=== PATIENT | female | born 1985 | race Caucasian/White ===

== ENCOUNTER 2021-03-21 07:49 | Emergency (ER) | payer OTHER, SELFPAY ==
[2021-03-21 07:50] VITALS: BP 147/74; PULSE 86; RESP 16; TEMP 36.7; O2SAT 99; BMI 24.1
--- NOTE | 2021-03-21 07:55 | DI.RAD.S_ITS ---
PROCEDURE: XR ANKLE LT MIN 3V INDICATIONS: lateral mal pain after rolled ankle TECHNIQUE: 3 views of the ankle were acquired. COMPARISON: None. FINDINGS: Bones: No fractures or dislocations. 1st metatarsal screws. No screw fracture. Ankle mortise is normally aligned. No suspicious bony lesions. Soft tissues: No tibiotalar joint effusion. Achilles tendon appears normal. IMPRESSION: No acute osseous abnormality. Dictated by: Jourdan Queen M.D. on 03/21/2021 at 8:59 Approved by: Jourdan Queen M.D. on 03/21/2021 at 9:01
--- NOTE | 2021-03-21 07:56 | ED.GENADULT ---
HPI - General Adult General Chief complaint: Extremity Injury, Lower Stated complaint: rolled ankle Friday night, swollen and painful Time Seen by Provider: 03/21/21 07:51 Source: patient Mode of arrival: Ambulatory Limitations: no limitations History of Present Illness HPI narrative: Patient is a 35-year-old female here for evaluation of left ankle pain. This has had 2 days ago she was walking and rolled her left ankle. She has had bunion surgery on this ankle in the past had bruising around the outside of the ankle this morning has been icing it. Related Data Allergies Allergy/AdvReac Type Severity Reaction Status Date / Time No Known Drug Allergies Allergy Verified 03/21/21 07:59 Review of Systems Musculoskeletal Musculoskeletal: Denies tingling Comments: Left ankle pain Integumentary/Breasts Comments: Bruising around left ankle Neurologic Neurologic: Denies tingling Hematologic/Lymphatic On Anticoagulants: No Patient History Medical History Healthy adult Social History lives independently: Yes Smoking Status: Current every day smoker Exam Initial Vital Signs Initial Vital Signs: Vital Signs Temperature 98.1 F 03/21/21 07:50 Pulse Rate 86 03/21/21 07:50 Respiratory Rate 16 03/21/21 07:50 Blood Pressure 147/74 H 03/21/21 07:50 Pulse Oximetry 99 03/21/21 07:50 Const General: cooperative and comfortable Limitations: mental status not altered Cardio Pulses: dorsalis pedis present on the left Skin Other: Bruising inferior aspect of left ankle Neuro Speech: speech normal Sensory Exam: no sensory deficits noted Extrem General: capillary refill normal Other: No proximal fibula tenderness. Has tenderness inferior posterior and on the lateral malleolus. Medial malleolus unremarkable. Rest of her foot unremarkable. Psych Appearance: grossly normal and well kempt Course Orders Ordered: ED Orders 03/21/21 07:55 XR ankle LT min 3V Stat Vital Signs Vital signs: Vital Signs - 8 hr 03/21/21 07:50 Temperature 98.1 F Pulse Rate 86 Respiratory Rate 16 Blood Pressure 147/74 H Pulse Oximetry 99 Medical Decision Making Imaging Data Extremity x-ray #1: Attestation: I personally reviewed and interpreted this imaging study as follows: My Impression: No fractures or dislocations noted on the x-ray MDM Narrative Medical decision making narrative: Patient was given an Juan A bandage to take home. She was wearing boots upon arrival which did provide support to her ankle. There were no fractures on the x-ray. We did discuss conservative measures to include elevation and icing. She was given return precautions. She expressed understanding and agreement. 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 Use the Juan A bandage like we discussed. Keep your ankle iced as much as possible. Follow-up with your medical department for any long-term work related restrictions Stand Alone Forms: Work Release Note
== END 2021-03-21 08:18 | disposition home or self-care (01) ==
PROVIDERS: Emergency Provider Emergency Medicine
DX: S93.402A Sprain of unspecified ligament of left ankle, initial encounter (principal); X50.1XXA Overexertion from prolonged static or awkward postures, initial encounter
CPT/HCPCS: 73610; 99282; 99283

== ENCOUNTER 2022-01-05 17:07 | Emergency (ER) | payer OTHER, SELFPAY ==
[2022-01-05] VITALS (21 sets, daily range): BP systolic 109–149; BP diastolic 59–87; PULSE 62–104; RESP 15–40; TEMP 36.2; O2SAT 96–99; BMI 24.1
--- NOTE | 2022-01-05 17:19 | DI.RAD.S_ITS ---
PROCEDURE: XR CHEST 1V INDICATIONS: chest pain TECHNIQUE: One view of the chest was acquired. COMPARISON: None. FINDINGS: Surgical changes and devices: None. Lungs and pleura: Lungs are clear. No pleural effusions or pneumothorax. Mediastinum: Mediastinal contours appear normal. Heart size is normal. Bones and chest wall: No suspicious bony lesions. Overlying soft tissues appear unremarkable. IMPRESSION: Portable chest within normal limits. Dictated by: Glen Tao M.D. on 01/05/2022 at 16:59 Approved by: Glen Tao M.D. on 01/05/2022 at 16:59
[2022-01-05 17:46] LABS: Add Manual Diff / Slide Review NO; Basophils Absolute Auto 100 /uL (0-100); Basophils Percent Auto 0.8 % (0-2); Eosinophils Absolute Auto 100 /uL (0-450); Eosinophils Percent Auto 0.6 % (2-4); Hemoglobin 14.7 g/dL (12.0-16.0); Lymphocytes Absolute Auto 2200 /uL (1100-4500); Lymphocytes Percent Auto 20.3 % (25-40); Mean Corpuscular HGB Conc 35.1 % (30-36); Mean Corpuscular Hemoglobin 32.3 PG (26-34); Monocytes Absolute Auto 1000 /uL (0-900); Monocytes Percent Auto 9.1 % (3-14); Neutrophils Absolute Auto 7600 /uL (1500-7000); Neutrophils Percent Auto 69.2 % (50-75); Platelet Count 341 X10^3/uL (150-400); Red Blood Cell Count 4.56 X10^6/uL (4.0-5.2); Red Cell Distribution Width 12.7 % (11.6-14.8); White Blood Cell Count 10.9 X10^3/uL (4.5-11.0)
[2022-01-05 17:51] LABS: Alanine Aminotransferase 17 IU/L (<35); Albumin 4.8 g/dL (3.5-5.0); Albumin Globulin Ratio 1.5 (1.0-2.8); Alkaline Phosphatase 92 U/L (38-126); Aspartate Aminotransferase 27 IU/L (14-36); BUN Creatinine Ratio 17.5 (6-22); Bilirubin Total 0.7 mg/dL (0.2-1.3); Blood Urea Nitrogen 10 mg/dL (7-17); Calcium 10.1 mg/dL (8.4-10.2); Carbon Dioxide 26 mmol/L (22-32); Chloride 104 mmol/L (98-107); Creatine Kinase 81 U/L (30-135); Estimated Glomerular Filt Rate > 60.0 mL/min (>60); Globulin 3.3 g/dL (1.7-4.1); Glucose 109 mg/dL (70-100); HEMOLYSIS < 15 (0-50); Lipase 39 U/L (23-300); Magnesium 1.9 mg/dL (1.6-2.3); Potassium 3.5 mmol/L (3.4-5.1); Sodium 137 mmol/L (137-145); Total Protein 8.1 g/dL (6.3-8.2)
[2022-01-05 18:01] LABS: Troponin I 0.019 ng/mL (0.01-0.034)
--- NOTE | 2022-01-05 18:32 | ED_ITS ---
HPI - Chest Pain General Chief Complaint: Chest Pain Stated Complaint: chest pain, dizziness Time Seen by Provider: 01/05/22 17:49 History of Present Illness HPI narrative: Patient is a healthy 36-year-old female who is a current smoker who presents with 3-4 days of chest discomfort. She states for last few days she has noticed chest burning. It comes without provocation or palliation. It does radiate to her right arm. It lasts for at least a few minutes before goes away. Today she was driving and it was very sharp and stabbing so painful that she had to gum puller. She got dizzy and lightheaded but did not pass out. Afterwards she noticed that the left side of her face was numb along with her left arm. She actually was in [place] but drove here to be evaluated. She now is complaining of some slight pain in her chest certainly not as bad as it was. She states that her dad had an KS in his 30s. He later had a stroke but that was when he was much older. 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 She does take control. She denies any shortness of breath Related Data Allergies Allergy/AdvReac Type Severity Reaction Status Date / Time No Known Drug Allergies Allergy Verified 03/21/21 07:59 Review of Systems Review of Systems Narrative: GENERAL: Denies chills, fatigue, malaise, fever, sweats, travel HEENT: Denies sinus pain, ear pain, sore throat, difficulty swallowing, neck pain RESPIRATORY: Denies dyspnea, cough, wheezing, hemoptysis, sputum. CARDIOVASCULAR: See HP GASTROINTESTINAL: Denies nausea, vomiting, abdominal pain, diarrhea, constipation, melena. : Denies dysuria, frequency, incontinence, hematuria, urinary retention, flank pain. MUSCULOSKELETAL: Denies weakness, joint pain, or bony pain SKIN: No rash, no erythema, no pruritus NEUROLOGIC: Denies weakness, dizziness, headache, numbness, change in speech, confusion PSYCHIATRIC: No concerning psychosocial issues. 12 point review of systems is negative except for those stated above and HPI Patient History Medical History Healthy adult Social History lives independently: Yes Smoking Status: Current every day smoker Smoking Status: Current every day smoker tobacco type: cigarettes alcohol intake frequency: a few times a month Substance Use Type: does not use Exam Initial Vital Signs Initial Vital Signs: Vital Signs Temperature 97.1 F L 01/05/22 17:18 Pulse Rate 104 H 01/05/22 17:18 Respiratory Rate 16 01/05/22 17:18 Blood Pressure 149/87 H 01/05/22 17:18 Pulse Oximetry 99 01/05/22 17:18 GENERAL: Alert well-appearing 36-year-old female and in no acute distress. HEENT: Head atraumatic,EOMI, pupils reactive, face symmetric, moist mucous membranes CARDIOVASCULAR: Regular rate and rhythm without murmurs, rubs or gallops. RESPIRATORY: Breath sounds equal bilaterally, no wheezes rales or rhonchi. ABDOMEN: Soft, nontender. Normoactive bowel sounds all 4 quadrants. No guarding or rebound. EXTREMITIES: Normal range of motion, no clubbing or edema. Neurovascularly i ntact NEUROLOGICAL: Alert and oriented x4.Normal gait and speech. Cranial nerves II through XII grossly intact. Good [id number], good vpim-pp-[id number], strength equal bilaterally, no dysarthria or aphasia, sensation on left side is decreased from the right no weakness appreciated no visual changes, no facial droop SKIN: Warm, dry, no laceration, no petechiae, no rashes or lesions. Scores NIH Stroke Scale Level of Conciousness: Alert, keenly responsive Ask month/age: Answers both questions correctly. Open/close eyes, close hand: Performs both tasks correctly Best gaze horizontal: Normal Visual anderson: No visual loss Facial palsy: Normal symetrical movement Left arm drift: No drift for full 10 sec Right arm drift: No drift for full 10 sec Left leg drift: No drift for full 5 sec Right leg drift: No drift for full 5 sec Limb ataxia: Absent Sensory on face/arms/legs: Mild to moderate sensory loss, can tell touch Best language: No aphasia, normal Dysarthria: Normal Extinction or inattention: No abnormality Total NIH Stroke scale score: 1 Course Orders Ordered: ED Orders 01/05/22 18:46 EKG-12 Lead Stat 01/05/22 19:01 CT head/brain wo con Stat 01/05/22 19:44 EKG-12 Lead Stat 01/05/22 20:00 Trop I [Troponin I] Stat 01/05/22 21:57 COVID19 -Nasal swab/Pre-Proc Stat Discontinued Medications Aspirin (Aspirin 81 Mg Chew Tab) 324 mg PO NOW ONE Stop: 01/05/22 18:45 Last Admin: 01/05/22 19:15 Dose: 324 mg Documented by: [place] Pantoprazole Sodium (Pantoprazole 40 Mg Vial) 40 mg IV NOW ONE Stop: 01/05/22 18:45 Last Admin: 01/05/22 19:15 Dose: 40 mg Documented by: [place] Vital Signs Vital signs: Vital Signs - 8 hr 01/05/22 19:27 01/05/22 19:28 01/05/22 19:30 Pulse Rate 73 71 71 Respiratory Rate 18 31 H 23 Blood Pressure 141/83 H 136/77 Pulse Oximetry 98 97 97 01/05/22 19:45 01/05/22 20:00 01/05/22 20:15 Pulse Rate 71 75 69 Respiratory Rate 18 21 26 H Blood Pressure 136/81 140/86 127/75 Pulse Oximetry 97 97 96 01/05/22 20:30 01/05/22 20:45 01/05/22 21:00 Pulse Rate 70 74 67 Respiratory Rate 18 23 20 Blood Pressure 129/78 139/79 134/76 Pulse Oximetry 97 97 96 01/05/22 21:15 01/05/22 21:30 01/05/22 21:45 Pulse Rate 68 75 69 Respiratory Rate 15 23 18 Blood Pressure 120/74 134/81 128/76 Pulse Oximetry 96 97 96 01/05/22 22:00 01/05/22 22:15 01/05/22 22:30 Pulse Rate 84 80 62 Respiratory Rate 35 H 40 H 18 Blood Pressure 130/81 129/77 117/66 Pulse Oximetry 97 96 96 01/05/22 22:45 01/05/22 23:00 01/05/22 23:15 Pulse Rate 66 71 70 Respiratory Rate 18 18 17 Blood Pressure 124/67 118/62 117/59 L Pulse Oximetry 98 97 97 01/05/22 23:30 01/05/22 23:46 01/06/22 00:00 Pulse Rate 75 68 75 Respiratory Rate 19 18 18 Blood Pressure 130/66 109/65 118/68 Pulse Oximetry 99 97 97 01/06/22 00:15 01/06/22 00:30 Pulse Rate 67 80 Respiratory Rate 19 Blood Pressure 115/71 Pulse Oximetry 95 97 MDM - Chest Pain Lab Data Result diagrams: 01/05/22 17:25 01/05/22 17:25 Labs: Lab Results 01/05/22 01/05/22 01/05/22 Range/Units 17:25 17:25 17:25 WBC 10.9 (4.5-11.0) X10^3/uL RBC 4.56 (4.0-5.2) X10^6/uL Hgb 14.7 (12.0-16.0) g/dL Hct 42.0 (36-46) % MCV 92.0 (80-100) fL MCH 32.3 (26-34) PG MCHC 35.1 (30-36) % RDW 12.7 (11.6-14.8) % Plt Count 341 (150-400) X10^3/uL Neut % (Auto) 69.2 (50-75) % Lymph % (Auto) 20.3 L (25-40) % [place] % (Auto) 9.1 (3-14) % Eos % (Auto) 0.6 L (2-4) % Baso % (Auto) 0.8 (0-2) % Neut # (Auto) 7600 H (4759-5840) /uL Lymph # (Auto) 2200 (7812-5122) /uL [place] # (Auto) 1000 H (0-900) /uL Eos # (Auto) 100 (0-450) /uL Baso # (Auto) 100 (0-100) /uL D-Dimer < 200 (<230) ng/mL Sodium 137 (137-145) mmol/L Potassium 3.5 (3.4-5.1) mmol/L Chloride 104 (98-107) mmol/L Carbon Dioxide 26 (22-32) mmol/L BUN 10 (7-17) mg/dL Creatinine 0.57 (0.52-1.04) mg/dL Estimated GFR > 60.0 (>60) mL/min BUN/Creatinine Ratio 17.5 (6-22) Glucose 109 H (70-100) mg/dL Calcium 10.1 (8.4-10.2) mg/dL Magnesium 1.9 (1.6-2.3) mg/dL Total Bilirubin 0.7 (0.2-1.3) mg/dL AST 27 (14-36) IU/L ALT 17 (<35) IU/L Alkaline Phosphatase 92 (38-126) U/L Total Creatine Kinase 81 (30-135) U/L CK-MB (CK-2) TNP CK-MB (CK-2) Rel Index TNP Troponin I 0.019 (0.01-0.034) ng/mL Total Protein 8.1 (6.3-8.2) g/dL Albumin 4.8 (3.5-5.0) g/dL Globulin 3.3 (1.7-4.1) g/dL Albumin/Globulin Ratio 1.5 (1.0-2.8) Lipase 39 (23-300) U/L SARS-CoV-2 (PCR) (Negative) 01/05/22 01/05/22 Range/Units 20:00 21:57 WBC (4.5-11.0) X10^3/uL RBC (4.0-5.2) X10^6/uL Hgb (12.0-16.0) g/dL Hct (36-46) % MCV (80-100) fL MCH (26-34) PG MCHC (30-36) % RDW (11.6-14.8) % Plt Count (150-400) X10^3/uL Neut % (Auto) (50-75) % Lymph % (Auto) (25-40) % [place] % (Auto) (3-14) % Eos % (Auto) (2-4) % Baso % (Auto) (0-2) % Neut # (Auto) (8337-8710) /uL Lymph # (Auto) (2046-6708) /uL [place] # (Auto) (0-900) /uL Eos # (Auto) (0-450) /uL Baso # (Auto) (0-100) /uL D-Dimer (<230) ng/mL Sodium (137-145) mmol/L Potassium (3.4-5.1) mmol/L Chloride (98-107) mmol/L Carbon Dioxide (22-32) mmol/L BUN (7-17) mg/dL Creatinine (0.52-1.04) mg/dL Estimated GFR (>60) mL/min BUN/Creatinine Ratio (6-22) Glucose (70-100) mg/dL Calcium (8.4-10.2) mg/dL Magnesium (1.6-2.3) mg/dL Total Bilirubin (0.2-1.3) mg/dL AST (14-36) IU/L ALT (<35) IU/L Alkaline Phosphatase (38-126) U/L Total Creatine Kinase (30-135) U/L CK-MB (CK-2) CK-MB (CK-2) Rel Index Troponin I 0.019 (0.01-0.034) ng/mL Total Protein (6.3-8.2) g/dL Albumin (3.5-5.0) g/dL Globulin (1.7-4.1) g/dL Albumin/Globulin Ratio (1.0-2.8) Lipase (23-300) U/L SARS-CoV-2 (PCR) Negative (Negative) Imaging Data Chest x-ray: Radiologist's Impression: PROCEDURE:? XR CHEST 1V ? INDICATIONS:? chest pain ? TECHNIQUE:? One view of the chest was acquired.? ? COMPARISON:? None. ? FINDINGS:? ? Surgical changes and devices:? None.? ? Lungs and pleura:? Lungs are clear.? No pleural effusions or pneumothorax.? ? Mediastinum:? Mediastinal contours appear normal.? Heart size is normal.? ? Bones and chest wall:? No suspicious bony lesions.? Overlying soft tissues appear unremarkable.? IMPRESSION:? ? Portable chest within normal limits. ? ? ? Dictated by: Glen Tao M.D. on 01/05/2022 at 16:59 ? ? CT scan - head: Radiologist's Impression: not in meditech but in PACS No acute intracranial abnormality, read by Joel Snow ECG Data Interpretation: EKG 1. Normal sinus rhythm rate 92 UT interval 132 QRS [address] changes no priors to compare EKG 2. Sinus rhythm does appear to have Wellens like sign in V2 and V3 biphasic T-wave. No ST changes. Pronounced T-wave inversion noted in V1 EKG 3. Persistent T-wave changes V1 V2 and V3. MDM Narrative Medical decision making narrative: Patient has 2- troponins but does have some EKG changes. She has some concerning symptoms along with risk factors of genetics and smoking history. NIH stroke scale is low with some numbness and tingling on the left side of her body she is out of the window for tPA 900pm discussion with Cardiology Dr. Chery in regards to EKG changes. May or may not be related to lead placement. However patient does have risk factors of tobacco abuse and family history. Recommends transferring to [facility] for stress test. Dr. Bynum at [facility] accept patient for freddy pain Discharge Plan Departure Patient Disposition: [facility] Clinical Impression: Chest pain
--- NOTE | 2022-01-05 19:01 | DI.CT.S_ITS ---
PROCEDURE: CT HEAD/BRAIN WO CON INDICATIONS: left sided numbness TECHNIQUE: Noncontrast 4.5 mm thick angled axial sections acquired from the foramen magnum to the vertex, with coronal and sagittal reformats. For radiation dose reduction, the following was used: automated exposure control, adjustment of mA and/or kV according to patient size. COMPARISON: None. FINDINGS: Image quality: Excellent. CSF spaces: Basal cisterns are patent. No extra-axial fluid collections. Ventricles are normal in size and shape. Brain: No midline shift. No intracranial masses or hemorrhage. Fuller-white matter interface is normal. Skull and face: Calvarium and visualized facial bones are intact, without suspicious lesions. Sinuses: Visualized sinuses and mastoids are clear. IMPRESSION: No acute intracranial abnormality. Dictated by: Joel Snow M.D. on 01/05/2022 at 19:05 Approved by: Joel Snow M.D. on 01/05/2022 at 19:07
[2022-01-05 19:04] LABS: D Dimer < 200 ng/mL (<230)
[2022-01-05] MEDS: PANTOPRAZOLE 40 MG VIAL IV (19:15)
[2022-01-05] MEDS: ASPIRIN 81 MG CHEW TAB 324 MG PO (19:15)
--- NOTE | 2022-01-05 19:30 | PC.NURSE ---
Pt states she smokes 1.5 packs of cigarettes per day and drinks a lot of coffee.
--- NOTE | 2022-01-05 20:03 | PC.NURSE ---
pt resting on bed friend at bedside, repeat trop drawn and sent
[2022-01-05 20:33] LABS: Troponin I 0.019 ng/mL (0.01-0.034)
[2022-01-05 22:17] LABS: COVID19 -Nasal RAPID Negative (Negative)
[2022-01-06] VITALS: BP 118/68; PULSE 75; RESP 18; O2SAT 97
[2022-01-06 00:15] VITALS: BP 115/71; PULSE 67; RESP 19; O2SAT 95
[2022-01-06 00:30] VITALS: PULSE 80; O2SAT 97
== END 2022-01-06 00:37 | disposition short-term general hospital (02) ==
PROVIDERS: Emergency Medicine; Emergency Provider Emergency Medicine
DX: R07.9 Chest pain, unspecified (principal); R94.31 Abnormal electrocardiogram [ECG] [EKG]; R20.2 Paresthesia of skin; R42 Dizziness and giddiness; Z20.822 Contact with and (suspected) exposure to COVID-19
CPT/HCPCS: 36415; 70450; 71045; 80053; 82550; 83690; 83735; 84484; 85025; 85379; 87635; 93005; 93010; 96374; 99284; C9803; C9113